=== PATIENT | male | born 2000 | race Two or more races ===

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

== ENCOUNTER 2021-05-17 20:26 | Emergency (ER) | payer OTHER ==
[2021-05-17] MEDS ORDERED: IBUPROFEN 600 MG TABLET PO STA (21:55)
[2021-05-17] MEDS ORDERED: ACETAMINOPHEN 325 MG TABLET PO STA (21:55)
--- NOTE | 2021-05-17 21:55 | ED Physician Documentation ---
PD HPI UPPER EXT INJURY - Stated complaint Stated Complaint: LT HAND INJURY - Chief complaint Chief Complaint: Trauma Ext - History obtained from History obtained from: Patient - History of Present Illness Location: Left, Hand Type of injury: Blunt / blow (he was upset and so punched his left palm with right fist several times. Has pain, swelling and tenderness in left palm.) Where injury occurred: Home Timing - onset: Today Timing - details: Abrupt onset, Still present Improved by: Rest Worsened by: Moving, Palpating Associated symptoms: Swelling, Discolored (some bruising in left palm). No: Weakness, Numbness Similar symptoms before: Has not had sx before Review of Systems Skin: denies: Abrasion (s), Laceration (s) Neurologic: denies: Focal weakness, Numbness Psychiatric: denies: Suicidal, Homicidal PD PAST MEDICAL HISTORY - Past Medical History Past Medical History: Yes Musculoskeletal: None - Past Surgical History Past Surgical History: No - Present Medications Home Medications: Ambulatory Orders Medication Instructions Recorded Confirmed No Known Home Medications 04/20/17 04/20/17 - Allergies Allergies/Adverse Reactions: Allergies Allergy/AdvReac Type Severity Reaction Status Date / Time No Known Drug Allergies Allergy Verified 05/17/21 20:30 - Social History Does the pt smoke?: No Smoking Status: Never smoker Does the pt drink ETOH?: No Does the pt have substance abuse?: No Substance Use and Type: Marijuana - Immunizations Immunizations are current?: Yes Immunizations: TDAP current <10years - POLST Patient has POLST: No PD ED PE NORMAL - Vitals Vital signs reviewed: Yes - General General: Alert and oriented X 3, No acute distress, Well developed/nourished - Derm Derm: Normal color, Warm and dry - Extremities Extremities: Other (left palm with some swelling and moderate bruising in palm. No dorsal bony tenderness. Normal color, sensation, movement in fingers. Pain with finger flexion and gripping. ) - Psych Psych: Normal mood, Normal affect Results - Vitals Vitals: Oxygen O2 Source Room air - Rads (name of study) left hand Radiology: Prelim report reviewed (no fractures), See rad report PD MEDICAL DECISION MAKING - ED course Complexity details: reviewed results, considered differential, d/w patient Departure - Departure Disposition: 01 Home, Self Care Clinical Impression: Hand contusion Qualifiers: Encounter type: initial encounter Laterality: left Qualified Code(s): S60.222A - Contusion of left hand, initial encounter Condition: Stable Record reviewed to determine appropriate education?: Yes Instructions: ED Contusion Hand Comments: No fractures on x-ray. You will have some swelling and bruising there but the swelling should decrease over a couple of days and the bruising over several days. Use of the hand as tolerated is okay. Tylenol ibuprofen if needed for pains. Discharge Date/Time: 05/17/21 23:03
[2021-05-17 23:03] VITALS: BP 117/78
--- NOTE | 2021-05-18 08:50 | XRAY Report ---
PROCEDURE: Hand 3 View LT INDICATIONS: struck left hand, pain in mid hand TECHNIQUE: 3 views of the hand(s) acquired. COMPARISON: None FINDINGS: Bones: No fractures or dislocations. No suspicious bony lesions. Soft tissues: No suspicious soft tissue calcifications. IMPRESSION: No acute finding Reviewed by: Hoang Rios MD on 05/18/2021 8:49 AM PDT Approved by: Hoang Rios MD on 05/18/2021 8:49 AM PDT Station ID: [id number]
== END 2021-05-17 23:03 | disposition home or self-care (01) ==
LOC: ED 20:26
DX: S60.222A Contusion of left hand, initial encounter (principal); X83.8XXA Intentional self-harm by other specified means, initial encounter
CPT/HCPCS: 73130; 99282; 99283; A9270

== ENCOUNTER 2022-12-06 19:50 | Emergency (ER) | payer SELFPAY ==
[2022-12-06 20:01] VITALS: BP 132/71
[2022-12-06] MEDS ORDERED: TETANUS/DIPHTHERIA/PERTUSSIS 0.5 ML SYRINGE IM ONE (20:20)
--- NOTE | 2022-12-06 20:22 | ED Physician Documentation ---
PD HPI UPPER EXT INJURY - Stated complaint Stated Complaint: RT HAND INJ - Chief complaint Chief Complaint: Laceration - History obtained from History obtained from: Patient (He was skateboarding today around 4 PM and fell. He has pain at the third and fourth knuckles of the right hand with an abrasion over the third knuckle of the right hand. No other injuries.) PD PAST MEDICAL HISTORY - Past Medical History Musculoskeletal: None - Past Surgical History Past Surgical History: No - Present Medications Home Medications: Ambulatory Orders Medication Instructions Recorded Confirmed No Known Home Medications 04/20/17 12/06/22 - Allergies Allergies/Adverse Reactions: Allergies Allergy/AdvReac Type Severity Reaction Status Date / Time No Known Drug Allergies Allergy Verified 12/06/22 20:00 - Social History Does the pt smoke?: No Smoking Status: Never smoker Does the pt drink ETOH?: No Does the pt have substance abuse?: No - Immunizations Immunizations are current?: Yes Immunizations: TDAP current <10years - POLST Patient has POLST: No PD ED PE NORMAL - Vitals Vital signs reviewed: Yes - General General: Alert and oriented X 3, No acute distress - Extremities Extremities: Other (Mild tenderness of the third and fourth distal metacarpals with a abrasion on the dorsal surface of the third metacarpal head. No limited range of motion.) - Neuro Neuro: Alert and oriented X 3, Normal speech Results - Vitals Vitals: Vital Signs - 24 hr 12/06/22 19:56 Temperature 36.6 C Heart Rate 74 Respiratory 14 Rate Blood Pressure 132/71 H O2 Saturation 97 Oxygen O2 Source Room air - Rads (name of study) 3V r HAND xRAY - nad Relevant Findings:: Final report received, EMP independent interpretation of test Departure - Departure Disposition: 01 Home, Self Care Clinical Impression: Contusion of right hand Qualifiers: Encounter type: initial encounter Qualified Code(s): S60.221A - Contusion of right hand, initial encounter Abrasion of right hand Qualifiers: Encounter type: initial encounter Qualified Code(s): S60.511A - Abrasion of right hand, initial encounter Condition: Good Record reviewed to determine appropriate education?: Yes Instructions: ED Abrasion, ED Contusion Hand Comments: Tylenol and/or ibuprofen as needed for pain. Note for your records that you received a Tdap shot today. You can keep a Band-Aid on it and ice as needed for pain as well. Return for new or worsening symptoms. Follow-up with your doctor in a week if not better. Discharge Date/Time: 12/06/22 20:33
--- NOTE | 2022-12-06 20:39 | XRAY Report ---
PROCEDURE: Hand 3 View RT INDICATIONS: Fell on cement skateboarding, c/o R hand swelling TECHNIQUE: 3 views of the hands acquired. COMPARISON: None. FINDINGS: Bones: No fractures or dislocations. No suspicious bony lesions. Soft tissues: No suspicious soft tissue calcifications. IMPRESSION: 1. No acute fracture or dislocation. Reviewed by: Cruz Pabon MD on 12/06/2022 8:38 PM PST Approved by: Cruz Pabon MD on 12/06/2022 8:38 PM PST Station ID: [id number]
== END 2022-12-06 20:33 | disposition home or self-care (01) ==
LOC: ED 19:50
DX: S60.412A Abrasion of right middle finger, initial encounter (principal); S60.221A Contusion of right hand, initial encounter; W19.XXXA Unspecified fall, initial encounter; Y93.51 Activity, roller skating (inline) and skateboarding
CPT/HCPCS: 90471; 99282; 99283